=== PATIENT | male | born 1970 | race American Indian/Alaskan Native ===

== ENCOUNTER 2018-11-10 06:44 | Day surgery (SDC) | payer OTHER ==
[~2018-11-10 06:44] MED LIST: ANCEF/STERILE WATER 2 GM/20 ML IV NR
[2018-11-10] MEDS ORDERED: DILAUDID IV PRN (07:52)
--- NOTE | 2018-11-10 07:53 | Anesthesia Consultation ---
Anesthesia Consult and Med Hx Date of service: 11/10/18 - Airway Anesthetic Teeth Evaluation: Good, Crowns ROM Head & Neck: Adequate Mental/Hyoid Distance: Adequate Mallampati Class: Class III Intubation Access Assessment: Possibly Difficult - Pulmonary Exam CTA: Yes - Cardiac Exam Cardiac Exam: RRR - Pre-Operative Health Status ASA Pre-Surgery Classification: ASA2 Proposed Anesthetic Plan: General - Pulmonary Hx Smoking: Yes (quit 5yrs ago) Hx Respiratory Symptoms: No Hx Sleep Apnea: No (GIL PRE SCREEN LOW RISK.) - Cardiovascular System Hx Hypertension: No Hx Heart Attack/AMI: No Hx Percutaneous Transluminal Coronary Angioplasty (PTCA): No - Central Nervous System Hx Seizures: No CVA: No - Gastrointestinal Hx Gastroesophageal Reflux Disease: No - Endocrine Hx Renal Disease: No Hx Liver Disease: No Hx Insulin Dependent Diabetes: No Hx Non-Insulin Dependent Diabetes: No Hx Thyroid Disease: No - Other Systems Hx Obesity: Yes - Additional Comments Anesthesia Medical History Comments: No prior GA. No FHx anesthetic complications.
--- NOTE | 2018-11-10 07:54 | Anesthesia Day of Surgery ---
Anesthesia Day of Surgery - Day of Surgery Patient Examined: Yes Patient H&P Reviewed: Yes Patient is NPO: Yes
[2018-11-10] MEDS ORDERED: LACTATED RINGERS 1,000 ML IV SCH (08:00)
[2018-11-10] MEDS ORDERED: NEURONTIN PO NR (08:00)
[2018-11-10] MEDS ORDERED: VERSED IV NR (08:00)
[2018-11-10] MEDS ORDERED: MARCAINE-EPI 0.5%-1:200,000 INFILTRATI ONE ×2 (09:04→10:14)
[2018-11-10] MEDS ORDERED: VERSED ONE (09:38)
[2018-11-10] MEDS ORDERED: DILAUDID ONE (09:38)
[2018-11-10] MEDS ORDERED: DIPRIVAN 10 MG/ML IV ONE (09:39)
[2018-11-10] MEDS ORDERED: XYLOCAINE MPF 2% ONE (09:39)
[2018-11-10] MEDS ORDERED: ZOFRAN ONE (10:13)
[2018-11-10] MEDS ORDERED: ROBINUL ONE (10:13)
[2018-11-10] MEDS ORDERED: DECADRON ONE (10:13)
[2018-11-10] MEDS ORDERED: NACL 0.9% IR ONE (10:14)
[2018-11-10] MEDS ORDERED: ZEMURON IV ONE (10:31)
[2018-11-10] MEDS ORDERED: BLOXIVERZ ONE (10:49)
[2018-11-10] MEDS ORDERED: LACTATED RINGERS 1,000 ML ONE (10:52)
--- NOTE | 2018-11-10 10:59 | Discharge Summary ---
Short Stay Discharge Plan Activity: other (observe x 4 hrs then july d/c if stable and able to void. ice pack to L groin x 6hrs. scrotal support x 3 days. no lifting over 5 lbs x 3 wks) Diet: other (cl liq advance to solid high fiber diet as petra) Wound: keep clean and dry (x 5 days) Additional Instructions: aleve I po q 6-8 hrs prn for breakthrough pain. surfak I po q am x 3 Follow up with: KAYE TIWARI MD [Staff Physician] - 7 Days
[2018-11-10] MEDS ORDERED: NORCO 5/325 PO PRN (11:30)
--- NOTE | 2018-11-10 12:04 | Operative Report ---
PREOPERATIVE DIAGNOSIS: Left inguinal hernia. POSTOPERATIVE DIAGNOSIS: Direct left inguinal hernia. PROCEDURE: Open left inguinal hernia repair with mesh. SURGEON: Addy Alcocer MD ANESTHESIA: General. ESTIMATED BLOOD LOSS: Minimal. DRAINS: None. COMPLICATIONS: None. DESCRIPTION OF PROCEDURE: The patient was taken to the operating room, prepped and draped in usual sterile fashion. Incision was made using his landmarks anterior superior iliac spine and the pubic tubercle. Incision was carried down to the external oblique fascia. External oblique fascia was transected down to the external inguinal ring. The cord was then identified and isolated with a Rola drain at the level of the pubic tubercle. Inspection of the cord itself revealed no indirect sac. A large direct hernia was, however, noted, which was protruding through the inguinal canal floor. A preshaped keyhole Marlex mesh was then used to reconstruct the inguinal canal floor. The mesh was tacked inferiorly to Keenan's ligament and the pubic tubercle. Laterally, the mesh was secured medially to the transversalis fascia and laterally to the iliopubic tract with Surgilon sutures. Air was then irrigated copiously and dried. Checked for hemostasis and noted to be dry. All cord structures including the ilioinguinal nerve was identified and noted to be intact. The cord was then on laid over the mesh. The external oblique fascia was closed over the cord with running 2-0 Vicryl suture. Subcutaneous tissues irrigated. Skin closed with lizzy. A 0.5% Marcaine with epinephrine was infiltrated over the fascia, subcutaneous, and skin for postoperative pain relief. Ilioinguinal nerve block was also performed. The patient tolerated the procedure well and left the OR in stable condition. JOB# [id number] FP/NTS
--- NOTE | 2018-11-10 14:04 | Post Anesthesia Evaluation ---
- Post Anesthesia Evaluation Patient Participated: Yes Airway Patent: Yes Stable Respiratory Function: Yes Nausea/Vomiting: No Temp > 96.8F: Yes Pain Manageable: Yes Adequeate Hydration: Yes Anesthesia Complications: No
[2018-11-10 16:15] VITALS: BP 131/72
== END 2018-11-10 06:45 | disposition home or self-care (01) ==
LOC: EDBD 06:44 → OR 06:44
PROVIDERS: ATTEND Surgery
DX: K40.90 Unilateral inguinal hernia, without obstruction or gangrene, not specified as recurrent (principal); E66.9 Obesity, unspecified; Z79.899 Other long term (current) drug therapy; Z87.891 Personal history of nicotine dependence; Z68.30 Body mass index [BMI] 30.0-30.9, adult; Z98.890 Other specified postprocedural states
CPT/HCPCS: 49505; C1781; J0690; J1100; J1170; J2250; J2405; J2704; J2710; J7120